=== PATIENT | female | born 1960 | race Hispanic/Latino ===

== ENCOUNTER → 2016-09-22 | Outpatient (CLI) | payer BC | END | disposition home or self-care (01) | LOC: GMA 16:04 | PROVIDERS: ATTEND Nurse Practitioner Family | DX: G44.209 Tension-type headache, unspecified, not intractable (principal) ==

== ENCOUNTER → 2016-09-23 | Outpatient (CLI) | payer BC, SELFPAY ==
--- NOTE | 2016-09-23 15:30 | CT ---
EXAM DESCRIPTION: Head CLINICAL HISTORY: HEADACHE COMPARISON: None TECHNIQUE: Noncontrast transaxial CT images of the head are obtained from base to vertex. This exam was performed according to our departmental dose-optimization program, which includes automated exposure control, adjustment of the mA and/or kV according to patient size and/or use of iterative reconstruction technique. FINDINGS: The midline structures are not displaced. The sulci are age appropriate. The lateral, third, and fourth ventricles are normal in size, shape, and anatomic positioning. There is no evidence of mass, mass effect, hydrocephalus, or acute intracranial hemorrhage. No abnormal extra axial fluid collections are seen. Normal gaun-white differentiation is seen. The visualized bone windows show no depressed skull fracture or significant abnormality. The visualized paranasal sinuses and mastoid air cells are clear. IMPRESSION: 1. No acute abnormality is seen on noncontrast CT of the head. Findings on this exam were called to Dr. Garcia at 1525 hours on September 23, 2016.. Electronically signed by: De Benavidez MD 09/23/2016 3:29 PM CDT
== END | disposition home or self-care (01) ==
LOC: CT 13:35
PROVIDERS: ATTEND Nurse Practitioner Family
DX: G44.209 Tension-type headache, unspecified, not intractable (principal)

== ENCOUNTER → 2016-09-30 | Outpatient (CLI) | payer BC | LOC: GMAB 14:24 | PROVIDERS: ATTEND Family Medicine | DX: G44.209 Tension-type headache, unspecified, not intractable (principal) ==

== ENCOUNTER → 2016-10-11 | Outpatient (CLI) | payer BC ==
--- NOTE | 2016-10-11 16:59 | MRI ---
EXAM DESCRIPTION: Brain w/oContrast CLINICAL HISTORY: HEADACHES COMPARISON: None available TECHNIQUE: Non contrast MRI of the brain is performed according to our usual protocol including multiplanar multi sequence technique. FINDINGS: Noncontrast MRI of the brain demonstrates no evidence of restricted diffusion to suggest acute or subacute ischemia. A small normal appearing ventricular system without significant atrophy or hydrocephalus or mass effect or midline shift is noted. No significant periventricular or subcortical white matter changes to suggest previous infarction or microvascular disease or significant age-related changes noted. Gradient echo imaging demonstrates no evidence of susceptibility artifact or hemosiderin deposition from previous hemorrhage focal gliosis or encephalomalacia is not apparent. The sellar and suprasellar region and brainstem appear normal. IMPRESSION: Normal MRI of the brain without contrast enhancement. Electronically signed by: Mikey Rowe MD 10/11/2016 4:56 PM CDT
--- NOTE | 2016-10-11 17:09 | MRI ---
EXAM DESCRIPTION: Lumbar Spine w/o Contrast CLINICAL HISTORY: LOW BACK PAIN COMPARISON: None Available. TECHNIQUE: MRI of the lumbar spine is performed according to our usual protocol with axial and sagittal multi sequence imaging. FINDINGS: MRI of the lumbar spine demonstrates normal alignment with the multilevel disc desiccation from L1-2 through L4-5 with modest disc space narrowing at L4-5. Lower thoracic and thoracolumbar disc levels as well as L5-S1 are preserved to a better degree. The conus is positioned at the upper L lump one level without intradural or intramedullary mass noted. No marrow destructive process or replacement is seen. Retroperitoneal and paraspinous structures appear unremarkable. The disc contours at T11-T12 and T12-L1 are within the limits of normal. Prior posterior lateral fusion beginning at the upper L4 level and extending to the lumbosacral junction with mature fusion of the facet joints at L4-5 and what appears to be partial bony fusion with the residual joint spaces and facet joints at L5-S1 is noted. The L3-4 facet joints may be partially fused is well. A significant laminectomy has not been performed. L1-2: Disc desiccation and mild disc space narrowing with symmetric annular bulge with adequate canal and minimal facet arthropathy with adequate L1 neural foramina L2-3: Disc desiccation and modest annular bulge with adequate canal and moderate facet arthropathy with adequate neural foramina. L3-4: Disc desiccation and mild annular bulge with beginning of posterior lateral fusion with likely partial fusion of the facet joints at this level with adequate canal and bilateral neural foramina L4-5: Disc desiccation and mild disc narrowing with complete bony fusion posterior laterally at the facet joints with adequate central canal and neural foramina bilaterally L5-S1: Mild annular prominence with very slight right-sided disc prominence with adequate canal and modest facet arthropathy and likely partial fusion of the facet joints without obliteration of the articular surfaces. IMPRESSION: 1. Multilevel disc degeneration and annular bulges with adequate spinal canal throughout. 2. Prior posterior lateral fusion with dense obliteration and fusion of the facet joints at L4-5 and partial bony fusion posteriorly at the L3-4 and L5-S1 levels. No significant laminar or spinous process resection is noted. 3. Multilevel annular bulges without significant lateralizing herniation. A tiny amount of right-sided disc prominence at L5-S1 is not felt to be clinically significant. Electronically signed by: Mikey Rowe MD 10/11/2016 5:07 PM CDT
== END ==
LOC: MRI 10:02
PROVIDERS: ATTEND Family Medicine
DX: M51.16 Intervertebral disc disorders with radiculopathy, lumbar region (principal); M54.12 Radiculopathy, cervical region; Z98.1 Arthrodesis status

== ENCOUNTER → 2016-11-21 | Outpatient (CLI) | payer BC | END | disposition home or self-care (01) | LOC: MAMMO 16:23 | PROVIDERS: ATTEND Family Medicine | DX: Z12.31 Encounter for screening mammogram for malignant neoplasm of breast (principal) | CPT/HCPCS: 77063; G0202 ==

== ENCOUNTER → 2017-03-24 | Outpatient (CLI) | payer BC | END | disposition home or self-care (01) | LOC: GMAB 11:49 | PROVIDERS: ATTEND Family Medicine | DX: M79.1 Myalgia (principal); I10 Essential (primary) hypertension ==

== ENCOUNTER → 2018-04-02 | Outpatient (CLI) | payer BC ==
--- NOTE | 2018-04-02 14:47 | US ---
EXAM DESCRIPTION: Abdomen,Limited CLINICAL HISTORY: R94.5 ELEVATED LFTS COMPARISON: None Available. TECHNIQUE: Right upper quadrant ultrasound FINDINGS: Pancreas: Visualized portions of the pancreas are unremarkable. Bowel gas obscures some areas. Aorta/inferior vena cava: No aortic aneurysm. Normal inferior vena cava. Liver: The liver is homogeneous in texture with normal echogenicity of the hepatic parenchyma. No focal liver lesion or intrahepatic bile duct dilatation. No liver surface irregularity. Normal appearance of the portal vein and hepatic veins. Gallbladder: Gallbladder appears normal with no intraluminal stones or wall thickening. Common bile duct: Normal caliber measuring 4.0 mm. Right kidney: Renal length is 9.0 cm. This is small for an adult and may indicate renal scarring or chronic parenchymal disease. Correlate with renal function studies. Normal cortical echogenicity. Cortical thickness is normal. No hydronephrosis is seen. No renal mass or shadowing calculus. IMPRESSION: No acute upper abdominal process. Electronically signed by: Baldomero Huerta MD 04/02/2018 2:45 PM [employer]
== END ==
LOC: LAB.O 11:53
PROVIDERS: ATTEND Family Medicine
DX: R94.5 Abnormal results of liver function studies (principal)

== ENCOUNTER → 2019-03-03 | Outpatient (CLI) | payer BC ==
--- NOTE | 2019-03-03 14:56 | RAD ---
EXAM: XR Chest, 2 Views CLINICAL HISTORY: ACUTE UPPER RESP INFECTION TECHNIQUE: Frontal and lateral views of the chest. COMPARISON: No relevant prior studies available. FINDINGS: Limitations: None. Lungs: Symmetrical hyperinflation. No consolidation. Incidental right lower lobe granuloma. Pleural space: Unremarkable. No pneumothorax. Heart: Unremarkable. No cardiomegaly. Mediastinum: Unremarkable. Bones/joints: Unremarkable. IMPRESSION: No acute findings in the chest. Electronically signed by: Roxane James MD 03/03/2019 2:55 PM [facility]
== END ==
LOC: RAD 13:10
PROVIDERS: ATTEND Nurse Practitioner Family
DX: J06.9 Acute upper respiratory infection, unspecified (principal)

== ENCOUNTER → 2019-09-16 | Outpatient (CLI) | payer BC | LOC: GMAL 15:02 | PROVIDERS: ATTEND Family Medicine | DX: Z00.01 Encounter for general adult medical examination with abnormal findings (principal); E53.8 Deficiency of other specified B group vitamins; E55.9 Vitamin D deficiency, unspecified; Z79.899 Other long term (current) drug therapy ==